=== PATIENT | female | born 1965 | race Two or more races ===

== ENCOUNTER 2022-11-19 06:39 | Day surgery (SDC) | payer OTHER ==
[2022-11-19] MEDS ORDERED: FENTANYL PF 100MCG/2ML AMPUL ONE (08:02)
[2022-11-19] MEDS ORDERED: HYDROMORPHONE 1 MG/1 ML DISP.SYRIN ONE (08:56)
[2022-11-19] MEDS ORDERED: ONDANSETRON HCL/PF 4 MG/2 ML VIAL ONE (10:03)
[2022-11-19] MEDS ORDERED: HYDROCODONE/APAP 5/325MG TABLET ONE (10:17)
== END 2022-11-19 11:40 | disposition home or self-care (01) ==
LOC: DS 06:39
PROVIDERS: ATTEND Specialist
DX: M67.432 Ganglion, left wrist (principal); F32.9 Major depressive disorder, single episode, unspecified; Z98.890 Other specified postprocedural states; Z79.899 Other long term (current) drug therapy
CPT/HCPCS: 25111; J0690; J1100; J2704; J3010; J3490 ×2; J1885; J2405 ×2; J7030; A6402; J1170; 88305-TC